=== PATIENT | male | born 1955 | race Hispanic/Latino ===

== ENCOUNTER 2020-08-30 08:32 | Emergency (ER) | payer SELFPAY ==
[2020-08-30 08:52] VITALS: BP 167/92
[2020-08-30] MEDS ORDERED: SODIUM CHLORIDE 0.9% IRR 500 ML BOTTLE IR SCH (09:00)
--- NOTE | 2020-08-30 09:01 | Event Note ---
ED Screening Note ED Screening Note: Patient is a 65-year-old male that comes to the emergency room today via EMS. EMS brings him in because they were concerned with how his hand looks. He was picked up allegedly on the side of the road. Patient has never been to [facility] before Patient states that he has been in the hospital for 2 weeks. He states that he has had Covid and Covid complications since February. He states that he was in [facility]. He states that he was living with his [id number] but he cannot find her. He states that he has a son that he cannot find. He has no phone on him. Patient states that he had a lesion removed surgically from his left hand. The left hand is swollen red and tender. He does have full range of motion. Patient is a very poor informant. He denies alcohol or drugs. He denies HI or SI. Case management consult has been placed. Patient cannot give us any infor mation, he has nowhere to go I think he may be lost. Given his altered nature I have ordered a CT scan of his head. He states that he has been confused since having Covid. However I cannot substantiate this. In addition he has abrasions that appear a couple days old to the right side of his face. He states that he fell. This initial assessment/diagnostic orders/clinical plan/treatment(s) is/are subject to change based on patients health status, clinical progression and re- assessment by fellow clinical providers in the ED. Further treatment and workup at subsequent clinical providers discretion. Patient/guardian urged not to elope from the ED as their condition may be serious if not clinically assessed and managed. Initial orders include: labs wound care xray ct head case management consult
--- NOTE | 2020-08-30 09:25 | XRay Report ---
Left hand radiograph, 3 views. HISTORY: Wound posterior left hand with pain. COMPARISON: None FINDINGS: Soft tissue wound of the dorsal hand measures 1.8 cm. No radiopaque foreign body. No aggres sive cortical destructive changes. No acute fracture or malalignment. Mild thumb CMC osteoarthritis. IMPRESSION: Soft tissue wound of the dorsal hand. No radiopaque foreign body or evidence of osteomyel itis. No acute fracture. Signer Name: Narayan Salguero MD Signed: 08/30/2020 9:21 AM Workstation Name: [id number]
--- NOTE | 2020-08-30 10:47 | Cat Scan Report ---
CT HEAD WITHOUT CONTRAST INDICATION / CLINICAL INFORMATION: MAIN. Altered mental status and fall. TECHNIQUE: All CT scans at this location are performed using CT dose reduction for ALARA by means of automated e xposure control. COMPARISON: None available. FINDINGS: HEMORRHAGE: None. EXTRA-AXIAL SPACES: Normal in size and morphology for the patient's age. VENTRICULAR SYSTEM: Normal in size and morphology for the patient's age. CEREBRAL PARENCHYMA: Large area of hypoattenuation in the left parieto-occipital region. Mild chronic microvascular changes in the periventricular and subcortical white matter. MIDLINE SHIFT OR HERNIATION: None. CEREBELLUM / BRAINSTEM: No significant abnormality. ORBITS: Normal as visualized. SOFT TISSUES of HEAD: No significant abnormality. CALVARIUM: No significant abnormality. PARANASAL SINUSES / MASTOID AIR CELLS: Normal as visualized. ADDITIONAL FINDINGS: None. IMPRESSION: 1. 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 Signer Name: Baltazar Jones MD Signed: 08/30/2020 10:41 AM Workstation Name: [id number]
[2020-08-30 11:38] LABS: Basophils # (Auto) 0.1 K/mm3 (0.0-0.1); Eosinophils # (Auto) 0.2 K/mm3 (0.0-0.4); Eosinophils % (Auto) 2.3 % (0.0-4.3); Hematocrit 31.1 % (35.5-45.6); Hemoglobin 10.2 gm/dl (11.8-15.2); Lymphocytes # (Auto) 1.1 K/mm3 (1.2-5.4); Lymphocytes % (Auto) 16.1 % (13.4-35.0); Mean Corpuscular HGB Conc 33 % (32-34); Mean Corpuscular Volume 85 fl (84-94); Monocytes # (Auto) 0.7 K/mm3 (0.0-0.8); Platelet Count 403 K/mm3 (140-440); Red Blood Count 3.65 M/mm3 (3.65-5.03); Red Cell Distribution Width 15.7 % (13.2-15.2)
[2020-08-30 11:50] LABS: BUN/Creatinine Ratio 21; Blood Urea Nitrogen 25 mg/dL (9-20); Calcium 8.7 mg/dL (8.4-10.2); Hemolysis Index 2
== END 2020-08-31 04:58 | disposition left against medical advice (07) ==
LOC: ED 08:32
DX: M79.642 Pain in left hand (principal); Z53.21 Procedure and treatment not carried out due to patient leaving prior to being seen by health care provider
CPT/HCPCS: 36415; 70450; 80048; 80320; 85025; G0480